=== PATIENT | female | born 1945 | race Caucasian/White ===

== ENCOUNTER → 2016-05-07 | Outpatient (CLI) | payer MEDICARE ==
[~2016-05-07] MED LIST: AMLO2.5T2 PO; ASPI-496 PO; ASPI-621 PO; ATOR40TA PO; ATOR40TA78 PO; BIFI4CAP PO; BIOT25004 PO; BUPR100T6 PO; CELE200C PO; ERGO500017 PO; ESZO1TAB6 PO; FENT1PAT77 TD; FENT1PAT77 TP; FERR47.57 PO; FLUT1DIS3 INH; FURO40TA6 PO; HYDR-3307 PO; HYDR-3341 PO; ISOS10TA2 PO; LEVO50TA PO; LEVO50TA5 PO; LIDO700A5 TD; LOSA25TA5 PO; METO-93 PO; METO25TA35 PO; METO50TA82 PO; POLY17PO5 PO; POTA8TAB PO; RIVA10TA PO; SENN1TAB35 PO; SENN1TAB7 PO; SPIR50TA2 PO; TRIA1CAP PO
== END | disposition home or self-care (01) ==
LOC: CARD 12:55
PROVIDERS: ATTEND Internal Medicine Pulmonary Disease
DX: R06.02 Shortness of breath (principal)
CPT/HCPCS: 94060; 94726; 94729

== ENCOUNTER → 2016-06-04 | Outpatient (CLI) | payer MEDICARE | END | disposition home or self-care (01) | LOC: CFH 12:27 | PROVIDERS: ATTEND Nurse Practitioner | DX: D86.0 Sarcoidosis of lung (principal); J84.9 Interstitial pulmonary disease, unspecified; J98.4 Other disorders of lung | CPT/HCPCS: 71250 ==

== ENCOUNTER → 2017-06-02 | Outpatient (CLI) | payer MEDICARE ==
[~2017-06-02] MED LIST changes: -BIOT25004 PO; +BIOT25005 PO; -ESZO1TAB6 PO; +ESZO1TAB8 PO
== END | disposition home or self-care (01) ==
LOC: CFH 12:45
PROVIDERS: ATTEND Registered Nurse
DX: J84.10 Pulmonary fibrosis, unspecified (principal); R91.1 Solitary pulmonary nodule; D86.0 Sarcoidosis of lung
CPT/HCPCS: 71250

== ENCOUNTER → 2017-07-14 | Outpatient (CLI) | payer MEDICARE | END | disposition home or self-care (01) | LOC: CFH 13:35 | PROVIDERS: ATTEND Internal Medicine | DX: Z12.31 Encounter for screening mammogram for malignant neoplasm of breast (principal); Z13.820 Encounter for screening for osteoporosis; N95.8 Other specified menopausal and perimenopausal disorders | CPT/HCPCS: 77080; 77067 ==

== ENCOUNTER → 2018-05-23 | Outpatient (CLI) | payer MEDICARE ==
[~2018-05-23] MED LIST changes: -ASPI-621 PO; +ASPI81TA45 PO; +LOSA25TA25 PO; -LOSA25TA5 PO; -RIVA10TA PO; +RIVA10TA2 PO; +SENN-177 PO; -SENN1TAB7 PO; -SPIR50TA2 PO; +SPIR50TA4 PO
== END | disposition home or self-care (01) ==
LOC: CFH 13:16
PROVIDERS: ATTEND Registered Nurse
DX: J98.4 Other disorders of lung (principal); K66.8 Other specified disorders of peritoneum; R91.1 Solitary pulmonary nodule; R59.0 Localized enlarged lymph nodes; M25.78 Osteophyte, vertebrae
CPT/HCPCS: 71250

== ENCOUNTER → 2018-05-25 | Outpatient (CLI) | payer MEDICARE | END | disposition home or self-care (01) | LOC: CVU 12:34 | PROVIDERS: ATTEND Internal Medicine Cardiovascular Disease | DX: I08.3 Combined rheumatic disorders of mitral, aortic and tricuspid valves (principal); I27.9 Pulmonary heart disease, unspecified; R60.0 Localized edema; M79.606 Pain in leg, unspecified; I10 Essential (primary) hypertension; E78.5 Hyperlipidemia, unspecified | CPT/HCPCS: 93306; 93970 ==

== ENCOUNTER 2019-02-10 14:49 | Outpatient (CLI) | payer MEDICARE ==
[~2019-02-10 14:49] MED LIST changes: +ALBU8.5H8 INH; +ALLO100T30 PO; +APIX5TAB PO; +AZIT500T10 PO; +BACL20TA PO; +DILT120C48 PO; +DIPH1TAB6 PO; +FEXO180T72 PO; +FOLI0.4T2 PO; -HYDR-3307 PO; +HYDR-36 PO; +METH2.5T PO; +OXYC15TA75 PO; +PREG50CA PO; +SENN8.6T64 PO
== END 2019-02-10 23:59 | disposition home or self-care (01) ==
LOC: CFH 14:49
PROVIDERS: ATTEND Internal Medicine
DX: J18.9 Pneumonia, unspecified organism (principal); J90 Pleural effusion, not elsewhere classified; J98.11 Atelectasis
CPT/HCPCS: 71046

== ENCOUNTER 2020-02-11 14:55 | Emergency (ER) | payer MEDICARE ==
[~2020-02-11] VITALS: Ht 167.6 cm; Wt 100.0 kg
[~2020-02-11 14:55] MED LIST changes: +AZIT500T PO; +BENZ-17 PO; +CLIN300C9 PO; +HYDR-3246 PO; -HYDR-36 PO; +LISI-170 PO
--- NOTE | 2020-02-11 15:33 | NUR ---
ASSUMED CARE OF PT AT THIS TIME FROM TRIAGE, AMBULATORY TO ROOM WITH OWN O2 AND CANE WITH STEADY GAIT. VALENTIN DENIS AT BEDSIDE FOR EVALUATION. 74 Y/O F REPORTS "CHRONIC RECURRENT UTI FOR MONTHS NOW, BLOOD IN URINE ABOUT A WEEK NOW, FEEL LIKE I NEED TO PEE ALL THE TIME, URGENCY, BURNING AND PAIN IN MY KIDNEYS, I ONLY HAVE ABOUT 60% KIDNEY FUNCTION, HAVE TAKEN SEVERAL ANTIBIOTICS, TALKED TO MY PCP LAST WEEK, THEY TOLD ME TO SEE UROLOGIST, HAVENT HEARD FROM EITHER, THIS MORNING SAW BLOOD IN URINE AND THINKING OF MY HISTORY I CAME IN. ALSO TAKING PYRIDIUM AT HOME. " PT ON CHRONIC HOME O2 USE, 2L, FOR PULMONARY SACRIODOSIS. CONT PULSE OX, BP, CARDIAC MONITORS APPLIED. VSS. CALL LIGHT IN REACH. FALL PRECAUTIONS IN PLACE. A&OX4. ASSESSMENT COMPLETED. PT AMBULATORY TO RESTROOM WITH STEADY GAIT, CLEAN CATCH UA COLLECTED AND SENT TO LAB. RESTING COMFORTABLY. AWAITING ADDITIONAL ORDERS
[2020-02-11] MEDS ORDERED: PHENAZOPYRIDINE 200 MG TABLET ONE (15:43)
--- NOTE | 2020-02-11 15:52 | NUR ---
PT MEDICATED NOTED PER VALENTIN DENIS ORDER FOR 8/10 URINARY PAIN. RESTING COMFORTABLY. VSS. LAB AT BEDSIDE. CALL LIGHT IN REACH
[2020-02-11 15:58] LABS: MICROSCOPIC INDICATED
[2020-02-11] MEDS ORDERED: PHENAZOPYRIDINE 200 MG TABLET PO ONE (16:00)
[2020-02-11 16:07] LABS: BASOPHILS % (AUTO) 2 % (0-1); EOSINOPHILS % (AUTO) 2 % (1-7); LYMPHOCYTES % (AUTO) 24 % (22-44); MEAN CORPUSCULAR HEMOGLOBIN 29.6 pg (27.0-34.8); MEAN CORPUSCULAR HGB CONC 33.7 g/dL (32.4-35.8); MEAN PLATELET VOLUME 10.5 fL (7.4-10.4); MONOCYTES % (AUTO) 8 % (2-9); NEUTROPHILS % (AUTO) 65 % (42-75); PLATELET COUNT 161 x10^3/uL (130-400); RED BLOOD COUNT 4.84 x10^6/uL (3.82-5.3); RED CELL DISTRIBUTION WIDTH 13.9 % (9.6-15.2)
[2020-02-11 16:13] LABS: MD NO
[2020-02-11 16:19] LABS: ALBUMIN 4.2 g/dL (3.4-5.0); ANION GAP 4 mmol/L (5-15); CALCIUM 9.5 mg/dL (8.5-10.1); CHLORIDE 106 mmol/L (98-107); CREATININE 1.18 mg/dL (0.55-1.02)
--- NOTE | 2020-02-11 16:27 | NUR ---
DR. BARLOW AT BEDSIDE DISCUSSING TEST RESULTS AND DISCHARGE POC
[2020-02-11] MEDS ORDERED: FOSFOMYCIN 3 GM PACKET PO ONE (16:30)
--- NOTE | 2020-02-11 16:37 | NUR ---
MONUROL REQUESTED FROM PHARMACY.
[2020-02-11] MEDS ORDERED: FOSFOMYCIN 3 GM PACKET ONE (16:56)
--- NOTE | 2020-02-11 17:07 | NUR ---
PT MEDICATED NOTED IN [facility] WITH ANTIBIOTIC, NO BLOOD CULTURES PRIOR TO ADMIN PER DR. BARLOW. VSS. PT AWAITING DISCHARGE ORDERS AND PAPERS FROM ERP.
[2020-02-11 17:27] VITALS: BP 126/83
== END 2020-02-11 17:30 | disposition home or self-care (01) ==
LOC: ED 16:07
DX: N30.01 Acute cystitis with hematuria (principal); I11.0 Hypertensive heart disease with heart failure; I50.9 Heart failure, unspecified
CPT/HCPCS: 36415; 80048; 81001; 82040; 85025; 87086; 99283; 99285

== ENCOUNTER 2020-10-02 14:05 | Outpatient (CLI) | payer MEDICARE ==
[~2020-10-02 14:05] MED LIST changes: -FOLI0.4T2 PO; +FOLI0.4T5 PO; -HYDR-3246 PO; +HYDR-3248 PO
[2020-10-02 15:32] LABS: BASOPHILS % (AUTO) 1 % (0-1); EOSINOPHILS % (AUTO) 2 % (1-7); LYMPHOCYTES % (AUTO) 21 % (22-44); MEAN CORPUSCULAR HEMOGLOBIN 29.9 pg (27.0-34.8); MEAN CORPUSCULAR HGB CONC 33.9 g/dL (32.4-35.8); MEAN PLATELET VOLUME 10.6 fL (7.4-10.4); MONOCYTES % (AUTO) 7 % (2-9); NEUTROPHILS % (AUTO) 68 % (42-75); PLATELET COUNT 202 x10^3/uL (130-400); RED BLOOD COUNT 4.58 x10^6/uL (3.82-5.3); RED CELL DISTRIBUTION WIDTH 14.9 % (9.6-15.2)
[2020-10-02 15:44] LABS: ALANINE AMINOTRANSFERASE 27 U/L (12-78); ALBUMIN 3.7 g/dL (3.4-5.0); ANION GAP 3 mmol/L (5-15); CALCIUM 9.7 mg/dL (8.5-10.1); CHLORIDE 106 mmol/L (98-107); CREATININE 1.24 mg/dL (0.55-1.02)
[2020-10-02 15:46] LABS: ALKALINE PHOSPHATASE 99 U/L (45-117); BILIRUBIN,TOTAL 1.1 mg/dL (0.2-1.0); TOTAL PROTEIN 7.6 g/dL (6.4-8.2)
[2020-10-02 15:57] LABS: INTERNATIONAL NORMALIZED RATIO 1.09 (0.93-1.1); PROTHROMBIN TIME 11.6 Seconds (9.6-11.5)
[2020-10-02 16:01] LABS: MICROSCOPIC INDICATED
[2020-10-03] MEDS ORDERED: ATOR40TA78 PO (11:36)
[2020-10-03] MEDS ORDERED: CLON0.1T22 PO (14:14)
[2020-10-03] MEDS ORDERED: FLUT9.9S PO (14:14)
[2020-10-03] MEDS ORDERED: UBID100C24 PO (14:21)
[2020-10-03] MEDS ORDERED: METO25TA91 PO (14:21)
[2020-10-03] MEDS ORDERED: CYAN500T7 PO (14:21)
[2020-10-03] MEDS ORDERED: POTA99TA19 PO (14:21)
[2020-10-03] MEDS ORDERED: NALO4SPR PO (14:21)
[2020-10-03] MEDS ORDERED: SENN1TAB67 PO (14:21)
[2020-10-03] MEDS ORDERED: Oxygen INH (14:21)
== END 2020-10-02 23:59 | disposition home or self-care (01) ==
LOC: STAR 14:05
PROVIDERS: ATTEND Urology
DX: Z01.818 Encounter for other preprocedural examination (principal); N20.0 Calculus of kidney; I49.8 Other specified cardiac arrhythmias
CPT/HCPCS: 36415; 80053; 81001; 85025; 85610; 85730; 87086; 87186; 93005

== ENCOUNTER 2020-10-09 13:50 | Day surgery (SDC) | payer MEDICARE ==
[~2020-10-09] VITALS: Ht 167.6 cm; Wt 98.8 kg
[~2020-10-09 13:50] MED LIST changes: +CLON0.1T22 PO; +CYAN500T7 PO; +FLUT9.9S PO; +METO25TA91 PO; +NALO4SPR PO; +Oxygen INH; +POTA99TA19 PO; +SENN1TAB67 PO; +UBID100C24 PO
[2020-10-09 14:24] VITALS: BP 122/76
[2020-10-09] MEDS ORDERED: LACTATED RINGERS 1,000 ML IV SCH (14:30)
[2020-10-09] MEDS ORDERED: CHLORHEXIDINE 15 ML UDC ONE (14:31)
[2020-10-09] MEDS ORDERED: CHLORHEXIDINE 15 ML UDC PO ONE (15:00)
[2020-10-09] MEDS ORDERED: OMNIPAQUE 350 MG/ML, 50 ML BOTTLE ONE (15:15)
[2020-10-09] MEDS ORDERED: FENTANYL PF 250 MCG/5ML ONE (15:20)
[2020-10-09] MEDS ORDERED: PROPOFOL 10 MG/ML, 20ML ONE (15:30)
[2020-10-09] MEDS ORDERED: CEFAZOLIN 1,000 MG ONE (15:30)
[2020-10-09] MEDS ORDERED: ONDANSETRON 2MG/ML, 2ML ONE (15:30)
[2020-10-09] MEDS ORDERED: DEXAMETHASONE 4 MG/ML, 1ML ONE (15:30)
[2020-10-09] MEDS ORDERED: KETOROLAC 30 MG/1 ML ONE (15:30)
[2020-10-09] MEDS ORDERED: hydrALAzine 20 MG/ML, 1ML IV PRN (17:30)
[2020-10-09] MEDS ORDERED: PHENAZOPYRIDINE 200 MG TABLET PO PRN (17:30)
[2020-10-09] MEDS ORDERED: HYDROmorphone 1 MG/ML, 1ML INJ IVPush PRN (17:30)
[2020-10-09] MEDS ORDERED: MEPERIDINE/PF 25MG/0.5ML IVPush PRN ×2 (17:30→18:30)
[2020-10-09] MEDS ORDERED: PROMETHAZINE 25 MG/ML, 1ML IVPush PRN (17:30)
[2020-10-09] MEDS ORDERED: OXYcodone 5 MG/5 ML ORAL.SOL UDC PO PRN (17:30)
[2020-10-09] MEDS ORDERED: ONDANSETRON 2MG/ML, 2ML IVPush PRN (17:30)
[2020-10-09] MEDS ORDERED: LABETALOL 5MG/ML, 20ML IV PRN (17:30)
[2020-10-09] MEDS ORDERED: FENTANYL PF 100 MCG/2ML IV PRN (17:30)
[2020-10-09] MEDS ORDERED: hydrALAzine 20 MG/ML, 1ML ONE (17:36)
[2020-10-09] MEDS ORDERED: MEPERIDINE/PF 25MG/ML,1ML ONE (18:23)
[2020-10-09] MEDS ORDERED: OXYcodone 5 MG/5 ML ORAL.SOL UDC ONE (19:03)
[2020-10-09] MEDS ORDERED: HYDROmorphone 2 MG/ML, 1ML ONE (19:52)
== END 2020-10-09 22:30 | disposition home or self-care (01) ==
LOC: OR 13:50
PROVIDERS: ATTEND Urology
DX: N20.0 Calculus of kidney (principal); N13.8 Other obstructive and reflux uropathy; M79.7 Fibromyalgia; D86.0 Sarcoidosis of lung; J96.11 Chronic respiratory failure with hypoxia; G47.33 Obstructive sleep apnea (adult) (pediatric); E55.9 Vitamin D deficiency, unspecified; E66.9 Obesity, unspecified; Z68.35 Body mass index [BMI] 35.0-35.9, adult; Z79.82 Long term (current) use of aspirin; Z79.890 Hormone replacement therapy; Z79.891 Long term (current) use of opiate analgesic; Z79.899 Other long term (current) drug therapy; Z88.8 Allergy status to other drugs, medicaments and biological substances; Z99.81 Dependence on supplemental oxygen
CPT/HCPCS: 52356; 74420; 82360; 88300; C1769; J0360; J0690; J1100; J1170; J1885; J2175; J2405; J2704; J3010; J7120; Q9967